=== PATIENT | male | born 1955 | race Caucasian/White ===

== ENCOUNTER 2017-03-06 13:26 | Day surgery (SDC) | payer MEDICAID ==
[~2017-03-06] VITALS: Ht 180.3 cm; Wt 106.1 kg
[~2017-03-06 13:26] MED LIST: ALDACTONE50 MG PO; DEXILANT60 MG PO; ENULOSE10 GM/151 PO; FUROSEMIDE20 MG PO; INDERAL 20MG20 MG PO; LANTUS SOLOS100 U/ML SC; MILK THISTLE500 M1 PO; MVI; NEURONTIN300 MG/CAP PO; NITROQUICK0.4 MG SL; NITROSTAT0.4 MG/TAB SL; NKA; NOVOLOG FLEX100 U/ML SC; OXY IR5 MG PO; PHENERGAN 25 TA25 MG PO; PREVACID 15MG15 M1 PO; ULTRAM100 MG PO; VITAMIN D31000 IU PO; VITAMIN E ACET; XANAX .25M0.25 MG/TA PO; XIFAXAN550 MG PO; ZINC; ZOLOFT 25MG25 MG PO; ZYRTEC10 MG PO; [UNRECOGNIZED DRUG - OTHER] PO
[2017-03-06] MEDS ORDERED: JARDIANCE25 PO (13:59)
[2017-03-06 14:00] VITALS: BP 105/71; PULSE 65; TEMP 98
[2017-03-06] MEDS ORDERED: LASIX 40MG TABL40 MG PO (14:00)
[2017-03-06] MEDS ORDERED: VITAMIN D 50,1.25 MG PO (14:00)
[2017-03-06] MEDS ORDERED: TOUJEO300 U/ML SQ (14:00)
[2017-03-06] MEDS ORDERED: LEVOXYL0.025 MG PO (14:01)
[2017-03-06] MEDS ORDERED: MULTIPLE VITAMI1 CAP PO (14:01)
[2017-03-06 15:20] VITALS: BP 134/90; PULSE 66; TEMP 98.5
[2017-03-06 15:35] VITALS: BP 149/92; PULSE 79
[2017-03-06 15:50] VITALS: BP 171/78; PULSE 67
[2017-03-06 16:30] VITALS: BP 120/79; PULSE 64
[2017-03-06 16:45] VITALS: BP 114/80; PULSE 68
== END 2017-03-06 17:37 | disposition home or self-care (01) ==
LOC: SDCO 13:26
DX: I85.00 Esophageal varices without bleeding (principal); K74.60 Unspecified cirrhosis of liver; K21.9 Gastro-esophageal reflux disease without esophagitis; E11.9 Type 2 diabetes mellitus without complications; I10 Essential (primary) hypertension; I25.2 Old myocardial infarction; M19.90 Unspecified osteoarthritis, unspecified site; R53.82 Chronic fatigue, unspecified; D64.9 Anemia, unspecified; D69.6 Thrombocytopenia, unspecified; E66.01 Morbid (severe) obesity due to excess calories; G47.33 Obstructive sleep apnea (adult) (pediatric); Z94.4 Liver transplant status; Z79.4 Long term (current) use of insulin; Z87.891 Personal history of nicotine dependence
CPT/HCPCS: OP; J2550; J2704; J7030

== ENCOUNTER 2017-04-12 07:45 | Day surgery (SDC) | payer MEDICAID ==
[~2017-04-12] VITALS: Ht 180.3 cm; Wt 106.6 kg
[~2017-04-12 07:45] MED LIST changes: +JARDIANCE25 PO; +LASIX 40MG TABL40 MG PO; +LEVOXYL0.025 MG PO; +MULTIPLE VITAMI1 CAP PO; +TOUJEO300 U/ML SQ; +VITAMIN D 50,1.25 MG PO; +ZYRTEC 10MG10 MG PO; -ZYRTEC10 MG PO
[2017-04-12 08:22] VITALS: BP 108/77; PULSE 71; TEMP 97.8
[2017-04-12 09:30] VITALS: BP 127/69; PULSE 72; TEMP 97.8
[2017-04-12 09:45] VITALS: PULSE 69
[2017-04-12 10:00] VITALS: BP 126/71; PULSE 68
== END 2017-04-12 10:23 | disposition home or self-care (01) ==
LOC: SDCO 07:45
DX: I85.00 Esophageal varices without bleeding (principal); K74.60 Unspecified cirrhosis of liver; I10 Essential (primary) hypertension; K21.9 Gastro-esophageal reflux disease without esophagitis; D64.0 Hereditary sideroblastic anemia; E11.9 Type 2 diabetes mellitus without complications; I25.2 Old myocardial infarction; D69.6 Thrombocytopenia, unspecified; J45.909 Unspecified asthma, uncomplicated; M19.90 Unspecified osteoarthritis, unspecified site; R53.82 Chronic fatigue, unspecified; G47.33 Obstructive sleep apnea (adult) (pediatric); E03.9 Hypothyroidism, unspecified; Z79.4 Long term (current) use of insulin; Z87.891 Personal history of nicotine dependence; Z80.0 Family history of malignant neoplasm of digestive organs
CPT/HCPCS: OP; J2704; J7030

== ENCOUNTER 2017-05-17 07:03 | Day surgery (SDC) | payer MEDICAID ==
[~2017-05-17] VITALS: Ht 180.3 cm; Wt 102.7 kg
[2017-05-17 08:14] VITALS: BP 130/92; PULSE 79; TEMP 98.8
[2017-05-17 08:43] VITALS: BP 113/84; PULSE 54; TEMP 97.7
[2017-05-17 09:15] VITALS: BP 133/81; PULSE 77; TEMP 98
[2017-05-17 09:30] VITALS: BP 131/73; PULSE 77
[2017-05-17 09:45] VITALS: BP 107/96; PULSE 79
[2017-05-17 10:00] VITALS: BP 118/77; PULSE 78
== END 2017-05-17 10:15 | disposition home or self-care (01) ==
LOC: SDCO 07:03
DX: I85.00 Esophageal varices without bleeding (principal); K74.60 Unspecified cirrhosis of liver; Z88.6 Allergy status to analgesic agent; Z88.8 Allergy status to other drugs, medicaments and biological substances; I10 Essential (primary) hypertension; R16.1 Splenomegaly, not elsewhere classified; E11.9 Type 2 diabetes mellitus without complications; Z79.4 Long term (current) use of insulin; D69.6 Thrombocytopenia, unspecified; Z80.0 Family history of malignant neoplasm of digestive organs; Z83.71 Family history of colonic polyps; G47.33 Obstructive sleep apnea (adult) (pediatric); K21.9 Gastro-esophageal reflux disease without esophagitis; B19.20 Unspecified viral hepatitis C without hepatic coma; E03.9 Hypothyroidism, unspecified
CPT/HCPCS: OP; J2704; J3010

== ENCOUNTER 2017-06-14 06:58 | Day surgery (SDC) | payer MEDICAID ==
[~2017-06-14] VITALS: Ht 180.3 cm; Wt 105.5 kg
[2017-06-14] MEDS ORDERED: CYMBALTA 60MG60 MG PO (07:31)
[2017-06-14 07:39] VITALS: BP 117/82; PULSE 62; TEMP 97.4
[2017-06-14 08:40] VITALS: BP 143/80; PULSE 68
[2017-06-14 08:55] VITALS: BP 133/82; PULSE 72
[2017-06-14 09:10] VITALS: BP 142/79; PULSE 69
[2017-06-14] MEDS ORDERED: ULTRAM 50MG TAB50 MG PO (09:19)
[2017-06-14 09:25] VITALS: BP 120/80; PULSE 67
== END 2017-06-14 09:30 | disposition home or self-care (01) ==
LOC: SDCO 06:58
DX: K74.60 Unspecified cirrhosis of liver (principal); I85.10 Secondary esophageal varices without bleeding; I10 Essential (primary) hypertension; I25.2 Old myocardial infarction; I25.10 Atherosclerotic heart disease of native coronary artery without angina pectoris; E11.42 Type 2 diabetes mellitus with diabetic polyneuropathy; K21.9 Gastro-esophageal reflux disease without esophagitis; D64.9 Anemia, unspecified; D69.6 Thrombocytopenia, unspecified; J45.909 Unspecified asthma, uncomplicated; R53.82 Chronic fatigue, unspecified; R16.1 Splenomegaly, not elsewhere classified; B19.20 Unspecified viral hepatitis C without hepatic coma; G47.33 Obstructive sleep apnea (adult) (pediatric); G43.909 Migraine, unspecified, not intractable, without status migrainosus; Z79.4 Long term (current) use of insulin; Z88.6 Allergy status to analgesic agent; Z88.0 Allergy status to penicillin; Z88.8 Allergy status to other drugs, medicaments and biological substances; Z87.891 Personal history of nicotine dependence; Z80.0 Family history of malignant neoplasm of digestive organs
CPT/HCPCS: OP; J2250; J2704; J7030; J7042

== ENCOUNTER → 2017-12-20 | Day surgery (SDC) | payer MEDICAID ==
[~2017-12-20] VITALS: Ht 180.3 cm; Wt 105.5 kg
[~2017-12-20] MED LIST changes: +CYMBALTA 60MG60 MG PO; -NITROQUICK0.4 MG SL; +ULTRAM 50MG TAB50 MG PO
[2017-12-20 07:52] VITALS: BP 126/83; PULSE 84; TEMP 98.3
[2017-12-20 09:40] VITALS: BP 107/79; PULSE 82; TEMP 98.6
[2017-12-20 09:55] VITALS: BP 119/103; PULSE 78
[2017-12-20 10:10] VITALS: BP 122/85; PULSE 79
== END ==
LOC: SDCO 06:51
DX: I85.00 Esophageal varices without bleeding (principal); K74.60 Unspecified cirrhosis of liver; K29.30 Chronic superficial gastritis without bleeding; Z79.899 Other long term (current) drug therapy; E11.40 Type 2 diabetes mellitus with diabetic neuropathy, unspecified; Z79.4 Long term (current) use of insulin; J45.909 Unspecified asthma, uncomplicated; D64.9 Anemia, unspecified; G47.33 Obstructive sleep apnea (adult) (pediatric); Z80.0 Family history of malignant neoplasm of digestive organs; B19.20 Unspecified viral hepatitis C without hepatic coma; Z79.82 Long term (current) use of aspirin; Z87.442 Personal history of urinary calculi; K21.9 Gastro-esophageal reflux disease without esophagitis; I10 Essential (primary) hypertension; R16.1 Splenomegaly, not elsewhere classified; R13.10 Dysphagia, unspecified; G89.29 Other chronic pain; E03.9 Hypothyroidism, unspecified
CPT/HCPCS: J2704; J7030

== ENCOUNTER → 2018-01-14 | Outpatient (CLI) | payer MEDICAID | LOC: COL.RAD 08:15 | DX: K74.60 Unspecified cirrhosis of liver (principal); I85.00 Esophageal varices without bleeding; R16.1 Splenomegaly, not elsewhere classified ==

== ENCOUNTER 2018-06-20 06:47 | Day surgery (SDC) | payer MEDICAID ==
[~2018-06-20] VITALS: Ht 180.3 cm; Wt 105.6 kg
[2018-06-20 07:41] VITALS: BP 120/98; PULSE 88; TEMP 97.6
[2018-06-20 09:05] VITALS: BP 124/76; PULSE 78; TEMP 98.3
--- NOTE | 2018-06-20 09:05 | NUR ---
Pt to GI bay 6 via cart from ENDO. Pt drowsy, but awake. Pt rates pain 8/10 to mid chest. Pt also having nausea. Zofran given by Aida JAIMES. O2 placed on pt at 2 liters via nasal canula. Will continue to monitor. Call light within reach.
[2018-06-20 09:20] VITALS: BP 152/72; PULSE 74
--- NOTE | 2018-06-20 09:20 | NUR ---
Jello and water given per pt request. Pt continues to rest. Denies needs. Call light within reach.
[2018-06-20 09:35] VITALS: BP 146/84; PULSE 73
--- NOTE | 2018-06-20 09:35 | NUR ---
Pt continues to rest. Ultram 50mg PO given per orders. Pt tolerating PO food and fluids without difficulties.
[2018-06-20 09:50] VITALS: BP 150/76; PULSE 71
--- NOTE | 2018-06-20 09:50 | NUR ---
Pt continues to rest. Denies needs. Call light within reach.
[2018-06-20 10:05] VITALS: BP 155/84; PULSE 75
--- NOTE | 2018-06-20 10:05 | NUR ---
Discharge instructions reviewed. Pt voices understanding. IV site discontinued with all parts intact. Pt up to dress. Call light within reach.
--- NOTE | 2018-06-20 10:20 | NUR ---
Pt escorted to private car via wheel chair. Pt accompanied home by his friend.
== END 2018-06-20 10:20 | disposition home or self-care (01) ==
LOC: SDCO 06:47
DX: D12.0 Benign neoplasm of cecum (principal); D12.2 Benign neoplasm of ascending colon; I10 Essential (primary) hypertension; K21.9 Gastro-esophageal reflux disease without esophagitis; D64.9 Anemia, unspecified; I25.2 Old myocardial infarction; I85.00 Esophageal varices without bleeding; K74.60 Unspecified cirrhosis of liver; K29.30 Chronic superficial gastritis without bleeding; R16.1 Splenomegaly, not elsewhere classified; D69.6 Thrombocytopenia, unspecified; J45.909 Unspecified asthma, uncomplicated; M19.90 Unspecified osteoarthritis, unspecified site; I25.10 Atherosclerotic heart disease of native coronary artery without angina pectoris; G47.33 Obstructive sleep apnea (adult) (pediatric); G89.29 Other chronic pain; G43.909 Migraine, unspecified, not intractable, without status migrainosus; E03.9 Hypothyroidism, unspecified; E11.40 Type 2 diabetes mellitus with diabetic neuropathy, unspecified; Z86.010 Personal history of colon polyps; Z88.6 Allergy status to analgesic agent; Z91.040 Latex allergy status; Z88.8 Allergy status to other drugs, medicaments and biological substances; Z88.0 Allergy status to penicillin; Z88.4 Allergy status to anesthetic agent; Z79.4 Long term (current) use of insulin; Z83.71 Family history of colonic polyps; Z80.0 Family history of malignant neoplasm of digestive organs
CPT/HCPCS: J2704; J7030

== ENCOUNTER 2018-07-18 06:25 | Day surgery (SDC) | payer MEDICAID ==
[~2018-07-18] VITALS: Ht 180.3 cm; Wt 106.2 kg
[2018-07-18 07:20] VITALS: BP 93/73; PULSE 81; TEMP 97.3
[2018-07-18] MEDS ORDERED: XANAX .25M0.25 MG/TA PO (07:29)
[2018-07-18] MEDS ORDERED: TRESIBA FL200 UNIT/1 SQ (07:30)
[2018-07-18] MEDS ORDERED: LIDODERM 5% PATC1 EA TP (07:32)
[2018-07-18] MEDS ORDERED: ROXICODONE 55 MG/TAB PO (07:33)
[2018-07-18 08:10] VITALS: BP 131/81; PULSE 79; TEMP 97.6
--- NOTE | 2018-07-18 08:10 | NUR ---
Patient brought back to bay 2. Alert and oriented. Vital signs obtained, WNL. Blood sugar obtained remains at 86. Recieved wearing oxymask at 4L sating at 96%. Bumped down to 3L maintaining 93%. Will monitor. Denies any pain or nausea. Requesting his own personal juice and chocolate pudding. Will continue to monitor. Call smith within reach, all safety maintained.
[2018-07-18 08:25] VITALS: BP 118/89; PULSE 80
--- NOTE | 2018-07-18 08:25 | NUR ---
Patient states that he is feeling well. Tolerating food and drink well. O2 titrated down to 2L via NC. O2 saturations remain at 92%. Will continue to monitor.
[2018-07-18 08:40] VITALS: BP 137/105; PULSE 78
--- NOTE | 2018-07-18 08:40 | NUR ---
Patient titrated down to 1L oxygen via NC. Alert and oriented. States he is feeling well. Requesting wedding band that he had left last time he was here in May. Wet [employer] Kishor made aware, is in his possesion. Returned to patient. Will continue to monitor.
[2018-07-18 08:55] VITALS: BP 139/89; PULSE 79
[2018-07-18 09:10] VITALS: BP 125/86; PULSE 79
--- NOTE | 2018-07-18 09:25 | NUR ---
Patient called friend to pick him up. Discharge instructions reviewed with patient. All questions answered. Patient to get dressed.
--- NOTE | 2018-07-18 09:38 | NUR ---
Patient wheeled down to lobby. To be driven home by friend Nikky.
--- NOTE | 2018-07-18 10:19 | NUR ---
Patient states he is feeling well. Maintaining spo2 at 91% on 1L via NC. Will continue to monitor.
--- NOTE | 2018-07-18 10:20 | NUR ---
Patient states he is ready to go home at this time. SpO2 maintaining at 87% on room air which is baseline for this patient.
== END 2018-07-18 09:38 | disposition home or self-care (01) ==
LOC: SDCO 06:25
DX: I85.10 Secondary esophageal varices without bleeding (principal); K22.10 Ulcer of esophagus without bleeding; K29.30 Chronic superficial gastritis without bleeding; K74.60 Unspecified cirrhosis of liver; Z88.6 Allergy status to analgesic agent; Z91.040 Latex allergy status; Z88.8 Allergy status to other drugs, medicaments and biological substances; Z88.0 Allergy status to penicillin; E11.9 Type 2 diabetes mellitus without complications; I10 Essential (primary) hypertension; I25.2 Old myocardial infarction; D69.6 Thrombocytopenia, unspecified; M19.90 Unspecified osteoarthritis, unspecified site; Z80.0 Family history of malignant neoplasm of digestive organs
CPT/HCPCS: OP; J2704; J7030

== ENCOUNTER 2018-08-29 07:49 | Day surgery (SDC) | payer MEDICAID ==
[~2018-08-29] VITALS: Ht 182.9 cm; Wt 101.3 kg
[~2018-08-29 07:49] MED LIST changes: +DAZIDOX10 MG PO; -LEVOXYL0.025 MG PO; +LIDODERM 5% PATC1 EA TP; +SYNTHROID 0.0.025 MG PO; +TRESIBA FL200 UNIT/1 SQ; +XANAX 0.5MG0.5 MG PO
[2018-08-29 09:01] VITALS: BP 112/79; PULSE 60; TEMP 97.5
[2018-08-29] MEDS ORDERED: DEXILANT60 MG PO (09:43)
[2018-08-29 10:55] VITALS: BP 133/74; PULSE 62; TEMP 97.5
--- NOTE | 2018-08-29 10:55 | NUR ---
Patient brought back to bay 6. Alert and oriented. Vital signs stable. States he wants jello and pudding. Tolerating well. Denies any pain or nausea. Call smith within reach, will continue to monitor.
[2018-08-29 11:10] VITALS: BP 121/80; PULSE 60
[2018-08-29 11:25] VITALS: BP 125/70; PULSE 60
--- NOTE | 2018-08-29 11:50 | NUR ---
Discharge instructions reviewed with patient. Verbalized understanding. Call made to Anthony mahcado to bring patient home. IV removed per orders. Patient to get dressed at this time.
[2018-08-29 12:01] VITALS: BP 119/70; PULSE 56
--- NOTE | 2018-08-29 12:20 | NUR ---
Patient ambulated down to lobby. To be driven home by taxi. at home to meet patient.
== END 2018-08-29 12:20 | disposition home or self-care (01) ==
LOC: SDCO 07:49
DX: I85.00 Esophageal varices without bleeding (principal); K74.60 Unspecified cirrhosis of liver; Z88.0 Allergy status to penicillin; Z88.8 Allergy status to other drugs, medicaments and biological substances; Z88.6 Allergy status to analgesic agent; Z91.040 Latex allergy status; I25.2 Old myocardial infarction; I10 Essential (primary) hypertension; Z79.899 Other long term (current) drug therapy; K21.9 Gastro-esophageal reflux disease without esophagitis; E11.9 Type 2 diabetes mellitus without complications; Z79.4 Long term (current) use of insulin; G89.29 Other chronic pain; M25.569 Pain in unspecified knee; M25.519 Pain in unspecified shoulder; G43.909 Migraine, unspecified, not intractable, without status migrainosus; R13.10 Dysphagia, unspecified; D69.6 Thrombocytopenia, unspecified; D64.9 Anemia, unspecified; B19.20 Unspecified viral hepatitis C without hepatic coma; J45.909 Unspecified asthma, uncomplicated; Z86.010 Personal history of colon polyps; G47.33 Obstructive sleep apnea (adult) (pediatric); Z87.891 Personal history of nicotine dependence
CPT/HCPCS: J2704; J3010; J7030

== ENCOUNTER 2019-01-30 09:22 | Day surgery (SDC) | payer MEDICAID ==
[~2019-01-30] VITALS: Ht 182.9 cm; Wt 93.8 kg
[2019-01-30 09:38] VITALS: BP 134/79; PULSE 70; TEMP 97.2
[2019-01-30] MEDS ORDERED: NOVOLOG FLEX100 U/ML SQ (09:49)
[2019-01-30] MEDS ORDERED: ZYRTEC 10MG10 MG PO (09:51)
[2019-01-30] MEDS ORDERED: ZINC SULFATE220 M2 PO (09:51)
[2019-01-30 11:20] VITALS: BP 114/64; PULSE 65
--- NOTE | 2019-01-30 11:35 | NUR ---
Pt successfully finished pudding and Coke with no c/o n/v or pain. VSS and WNL and call light within reach. Pt awake and oriented.
--- NOTE | 2019-01-30 11:39 | NUR ---
Pt arrived to room after procedure with Endo RN via cart. Pt ambulated to chair with minimal touch assist by Endo RN. Received report from RNLaura. VSS and WNL. O2 sats in low 90's but pt and RN state that that had been his baseline with coming to clinic. Pt awake and oriented.
[2019-01-30 11:44] VITALS: BP 130/97; PULSE 65
[2019-01-30 11:50] VITALS: BP 135/76; PULSE 67; TEMP 97.1
--- NOTE | 2019-01-30 11:50 | NUR ---
Pt states that he is ready to be discharged, and he called to have transportation come pick him up. VSS and WNL on RA. Pt meets criteria to be dishcarged. Reviewed discharge information and educational packet with pt, and he expressed understanding.
--- NOTE | 2019-01-30 12:16 | NUR ---
at bedside reviewing procedure.
== END 2019-01-30 12:20 | disposition home or self-care (01) ==
LOC: SDCO 09:22
DX: K74.60 Unspecified cirrhosis of liver (principal); I85.10 Secondary esophageal varices without bleeding; R16.1 Splenomegaly, not elsewhere classified; I10 Essential (primary) hypertension; K21.9 Gastro-esophageal reflux disease without esophagitis; D64.9 Anemia, unspecified; E11.9 Type 2 diabetes mellitus without complications; I25.2 Old myocardial infarction; D69.6 Thrombocytopenia, unspecified; M19.90 Unspecified osteoarthritis, unspecified site; J45.909 Unspecified asthma, uncomplicated; B19.20 Unspecified viral hepatitis C without hepatic coma; I25.10 Atherosclerotic heart disease of native coronary artery without angina pectoris; G47.33 Obstructive sleep apnea (adult) (pediatric); G89.29 Other chronic pain; G43.909 Migraine, unspecified, not intractable, without status migrainosus; Z91.040 Latex allergy status; Z88.8 Allergy status to other drugs, medicaments and biological substances; Z88.6 Allergy status to analgesic agent; Z88.0 Allergy status to penicillin; Z91.010 Allergy to peanuts; Z79.4 Long term (current) use of insulin; Z86.010 Personal history of colon polyps; Z83.71 Family history of colonic polyps; Z80.0 Family history of malignant neoplasm of digestive organs
CPT/HCPCS: J2704; J7030

== ENCOUNTER 2019-07-24 06:35 | Day surgery (SDC) | payer MEDICAID ==
[~2019-07-24] VITALS: Ht 180.3 cm; Wt 103.8 kg
[~2019-07-24 06:35] MED LIST changes: +NOVOLOG FLEX100 U/ML SQ; +ZINC SULFATE220 M2 PO
[2019-07-24 07:02] VITALS: BP 138/78; PULSE 76; TEMP 97
[2019-07-24 08:15] VITALS: BP 116/74; PULSE 86; TEMP 97.5
--- NOTE | 2019-07-24 08:15 | NUR ---
Patient arrives to Endo bay 5 post procedure via cart, accompanied by Endo RN Valeria Calixto. Bedside report is received. Patient is alert and oriented. He ambulates with steady gait to the chair in his room. Monitoring is applied - VSS and WNL on room air. His gag reflex is intact. He denies any nausea or pain. He is offered and receives juice and pudding to eat.
[2019-07-24 08:29] VITALS: TEMP 97.5
[2019-07-24 08:30] VITALS: BP 115/78; PULSE 81
--- NOTE | 2019-07-24 08:30 | NUR ---
Patient is resting comfortably in room. VSS on room air. Tolerating PO well.
[2019-07-24 08:45] VITALS: BP 114/68; PULSE 81
--- NOTE | 2019-07-24 08:45 | NUR ---
VSS on room air. Discharge criteria has been met. PIV is removed with catheter intact and hemostasis achieved. Discharge instructions are discussed, denies any questions, and verbalizes understanding.
--- NOTE | 2019-07-24 08:55 | NUR ---
Dr. Ham is at the bedside and speaks with the patient.
--- NOTE | 2019-07-24 09:16 | NUR ---
Patient is escorted to the exit via wheelchair by staff. His ride home is [employer]. He is discharged to home with ride at 0915.
== END 2019-07-24 09:15 | disposition home or self-care (01) ==
LOC: SDCO 06:35
DX: K74.60 Unspecified cirrhosis of liver (principal); I85.00 Esophageal varices without bleeding; K29.30 Chronic superficial gastritis without bleeding; Z86.010 Personal history of colon polyps; E11.40 Type 2 diabetes mellitus with diabetic neuropathy, unspecified; B19.20 Unspecified viral hepatitis C without hepatic coma; D69.6 Thrombocytopenia, unspecified; D64.9 Anemia, unspecified; E03.9 Hypothyroidism, unspecified; I25.10 Atherosclerotic heart disease of native coronary artery without angina pectoris; I25.2 Old myocardial infarction; I10 Essential (primary) hypertension; Z96.41 Presence of insulin pump (external) (internal); Z79.899 Other long term (current) drug therapy; Z88.6 Allergy status to analgesic agent; Z88.0 Allergy status to penicillin; Z88.8 Allergy status to other drugs, medicaments and biological substances; J45.909 Unspecified asthma, uncomplicated; K21.9 Gastro-esophageal reflux disease without esophagitis; G44.009 Cluster headache syndrome, unspecified, not intractable; R16.1 Splenomegaly, not elsewhere classified
CPT/HCPCS: J2704; J7030

== ENCOUNTER → 2019-11-13 | Outpatient (CLI) | payer MEDICAID ==
[~2019-11-13] VITALS: Ht 180.3 cm; Wt 99.0 kg
[~2019-11-13] MED LIST changes: +D3-5050000 IU PO; -MULTIPLE VITAMI1 CAP PO; +MULTIPLE VITAMI1 TA5 PO; -VITAMIN D 50,1.25 MG PO
[2019-11-13 11:42] VITALS: BP 138/88; PULSE 116
[2019-11-13 14:10] VITALS: BP 135/80; PULSE 105
[2019-11-13 15:57] LABS: PERITONEAL -POLYMORPHONUCLEAR 5.8 % (0-25); PERITONEAL FLUID RBC 2000 /mm3 (0-0)
== END ==
LOC: COL.RAD 11:18
PROVIDERS: Physician Assistant
DX: K74.60 Unspecified cirrhosis of liver (principal); I85.00 Esophageal varices without bleeding

== ENCOUNTER → 2019-12-11 | Emergency (ER) | payer MEDICAID ==
[~2019-12-11] VITALS: Ht 198.1 cm; Wt 85.5 kg
[2019-12-11 14:33] LABS: BASO % 0.7 % (0.0-2.0); EOS # 0.1 (0.0-0.7); EOS % 3.3 % (0-4.0); GRAN # 1.9 (1.4-6.5); GRAN % 61.5 % (42.2-75.2); LYMPH # 0.6 (1.2-3.4); LYMPH % 19.7 % (20.0-51.0); MEAN CELL VOLUME 81 fl (80.0-100.0); MEAN CORPUSCULAR HGB CONC 32 g/dl (33.0-37.0); MONO # 0.4 (0.1-0.6); MONO % 14.5 % (1.7-9.3); PLATELET COUNT 96 K/mm3 (130-400); RED BLOOD COUNT 3.18 M/mm3 (4.20-5.60); REDCELL DISTRIBUTION WIDTH-CV 27.4 % (11.5-14.5)
[2019-12-11 14:34] LABS: HEMATOCRIT 25.7 % (42.0-52.0); HEMOGLOBIN 8.2 g/dl (13.5-18.0); MEAN CORPUSCULAR HEMOGLOBIN 26 pg (27.0-31.0)
[2019-12-11 14:35] LABS: INR 1.3 (0.8-3.0); PROTHROMBIN TIME 15.1 SECONDS (9.7-12.8)
[2019-12-11 14:51] LABS: ALBUMIN 3.5 gm/dL (3.5-5.0); BILIRUBIN,TOTAL 3.6 mg/dL (0.0-1.0); CREATININE, serum 2.26 (0.66-1.25); POTASSIUM 3.7 mmol/L (3.4-5.0); TOTAL PROTEIN 7.2 gm/dL (6.4-8.2)
[2019-12-11 16:26] VITALS: TEMP 98.7
[2019-12-11 16:30] LABS: PERITONEAL -POLYMORPHONUCLEAR 7.7 % (0-25); PERITONEAL FLUID RBC 1000 /mm3 (0-0)
[2019-12-11 17:40] VITALS: BP 109/71; PULSE 78
== END ==
LOC: COL.ER 11:52
PROVIDERS: Emergency Medicine
DX: R18.8 Other ascites (principal); I25.10 Atherosclerotic heart disease of native coronary artery without angina pectoris; N18.9 Chronic kidney disease, unspecified; Z79.4 Long term (current) use of insulin

== ENCOUNTER → 2019-12-18 | Emergency (ER) | payer MEDICAID | LOC: COL.ER 12:29 | DX: Z72.89 Other problems related to lifestyle (principal) ==